=== PATIENT | female | born 1965 | race Caucasian/White ===

== ENCOUNTER 2019-12-17 19:26 | Inpatient (IN) | payer OTHER ==
[~2019-12-17] VITALS: Ht 170.2 cm; Wt 82.6 kg
[2019-12-17 19:37] VITALS: BP 140/82
[2019-12-17] MEDS ORDERED: METFORMIN HCL500 M3 PO (19:44)
[2019-12-17] MEDS ORDERED: LANTUS SUBQ (19:44)
[2019-12-17] MEDS ORDERED: LEVO-T100 MCG PO (19:45)
[2019-12-17] MEDS ORDERED: XYZAL5 MG PO (19:46)
[2019-12-17] MEDS ORDERED: FUROSEMIDE 20 M20 MG PO (19:47)
[2019-12-17] MEDS ORDERED: [UNRECOGNIZED DRUG - OTHER] PO (19:47)
[2019-12-17] MEDS ORDERED: VITAMIN B-121000 MC2 PO (19:48)
[2019-12-17] MEDS ORDERED: EZALLOR SPRINKL10 MG PO (19:49)
[2019-12-17] MEDS ORDERED: ACID REDUCER20 M1 PO (19:49)
[2019-12-17] MEDS ORDERED: FLOVENT HFA 4444 MCG INH (19:49)
[2019-12-17] MEDS ORDERED: VITAMIN D21250 MCG PO (19:50)
[2019-12-17 20:08] LABS: ABSOLUTE BASOPHILS 0.1 thou/uL (0.0-0.2); ABSOLUTE LYMPHOCYTES 0.8 thou/uL (0.8-5.3); ABSOLUTE MONOCYTES 0.7 thou/uL (0.0-1.2); ABSOLUTE NEUTROPHILS 6.4 thou/uL (1.6-8.1); HEMATOCRIT 41.3 % (37.0-47.0); HEMOGLOBIN 13.8 gm/dL (12.0-15.0); LYMPHOCYTES 10.5 %; MCHC 33.3 g/dL (28.0-37.0); MCV 80.9 fL (80.0-100.0); MONOCYTES 8.4 %; MPV 7.3 fl. (7.2-11.1); NUCLEATED RBCS 0 /100WBC; PLATELET COUNT* 280 thou/uL (150-400); POLYS 80.1 %; RBC 5.11 mil/uL (4.20-5.00); RDW-CV 14.9 % (10.5-14.5); WBC 7.9 thou/uL (4.0-11.0)
[2019-12-17 20:13] LABS: CALCIUM 8.4 mg/dL (8.5-10.1); CREATININE 0.9 mg/dL (0.6-1.3); POTASSIUM 4.1 mmol/L (3.5-5.1)
[2019-12-17 20:14] LABS: APTT 31.7 Seconds (25.0-31.3); INR 1.1; PROTIME 11.2 Seconds (9.20-11.50)
[2019-12-17 20:24] LABS: ALBUMIN 2.8 g/dL (3.4-5.0); TOTAL BILIRUBIN 0.6 mg/dL (<0.1-1.0); TOTAL PROTEIN 7.7 g/dL (6.4-8.2)
[2019-12-17 20:27] LABS: INFLUENZA A ANTIGEN Negative (Negative); INFLUENZA B ANTIGEN Negative (Negative)
[2019-12-17 22:20] VITALS: BP 121/78
[2019-12-17 22:45] VITALS: BP 116/70
[2019-12-18 01:48] LABS: URINE BILIRUBIN NEGATIVE (Negative); URINE BLOOD NEGATIVE (Negative); URINE CLARITY CLEAR; URINE COLOR YELLOW; URINE GLUCOSE-RANDOM 2+ (Negative); URINE KETONES 3+ (Negative); URINE LEUKOCYTES-REFLEX NEGATIVE (Negative); URINE NITRITE-REFLEX NEGATIVE (Negative); URINE PROTEIN TRACE (Negative); URINE UROBILINOGEN 0.2 E.U./dl (0.2-1.0)
[2019-12-18 04:00] VITALS: BP 110/68
[2019-12-18 08:00] VITALS: BP 111/70
[2019-12-18 12:00] VITALS: BP 101/60
[2019-12-18 13:46] LABS: ABSOLUTE LYMPHOCYTES 0.7 thou/uL (0.8-5.3); ABSOLUTE MONOCYTES 0.3 thou/uL (0.0-1.2); ABSOLUTE NEUTROPHILS 3.6 thou/uL (1.6-8.1); BASOPHILS 0.1 %; HEMATOCRIT 40.5 % (37.0-47.0); LYMPHOCYTES 15.8 %; MCH 26.5 pg (26.0-34.0); MCHC 32.2 g/dL (28.0-37.0); MCV 82.3 fL (80.0-100.0); MONOCYTES 7.4 %; MPV 7.4 fl. (7.2-11.1); NUCLEATED RBCS 0 /100WBC; PLATELET COUNT* 298 thou/uL (150-400); POLYS 76.7 %; RBC 4.92 mil/uL (4.20-5.00); RDW-CV 14.7 % (10.5-14.5); WBC 4.7 thou/uL (4.0-11.0)
[2019-12-18 13:57] LABS: ALBUMIN 2.4 g/dL (3.4-5.0); CALCIUM 8.2 mg/dL (8.5-10.1); CREATININE 0.9 mg/dL (0.6-1.3); MAGNESIUM 2.1 mg/dL (1.8-2.4); POTASSIUM 4.5 mmol/L (3.5-5.1); TOTAL BILIRUBIN 0.4 mg/dL (<0.1-1.0); TOTAL PROTEIN 6.9 g/dL (6.4-8.2)
--- NOTE | 2019-12-18 15:11 | EKG ---
[place] [address] ELECTROCARDIOGRAM REPORT Name: YVETTE TUCKER Room: [address] [place] .R.#: [id number] Admission: 12/17/19 Attend Phys: Sukhdev Kimball, Discharge: Date of : 67 Date of Service: 12/17/191954 Report #: [id number] THIS REPORT FOR: //name// [facility] ED Test Date: 2019-12-17 Test Time: 19:55:52 Pat Name: YVETTE TUCKER Department: Room: [facility] Gender: F Operating Room Scheduler: [place] : 1965 Requested By: Jeremy Leon Order Number: [id number] MD: Zander Dominguez Measurements Intervals [place] Rate: 103 P: 39 [place]: 150 QRS: -26 QRSD: 88 T: 36 QT: 341 QTc: 447 Interpretive Statements Sinus tachycardia Inferior infarct, old possible Delayed R wave progression over the anterior precordium No previous ECG available for comparison Electronically Signed On 12-18-2019 15:11:38 CDT by Zander Dominguez [email or web address] <ELECTRONICALLY SIGNED> By: Zander Dominguez MD, FACC 12/18/19 1511 54 54 Zander Dominguez MD, [facility] /EPI
[2019-12-18 16:00] VITALS: BP 131/79
[2019-12-18 21:30] VITALS: BP 141/82
[2019-12-19 00:17] VITALS: BP 140/80
[2019-12-19 04:58] VITALS: BP 152/77
[2019-12-19 09:00] VITALS: BP 135/69
[2019-12-19 12:30] VITALS: BP 110/61
[2019-12-19 16:39] VITALS: BP 111/60
[2019-12-19 21:30] VITALS: BP 115/65
[2019-12-20 00:29] VITALS: BP 112/51
[2019-12-20 04:24] VITALS: BP 122/50
[2019-12-20 07:50] VITALS: BP 133/62
[2019-12-20 09:46] VITALS: BP 133/62
[2019-12-20] MEDS ORDERED: AZITHROMYCIN500 MG PO (14:53)
[2019-12-20 14:55] VITALS: BP 133/62
== END 2019-12-20 15:46 | disposition home or self-care (01) | DRG 177 ==
LOC: M.ERS 19:26 → M.TBA-ER 21:13 → M.2W 21:13
PROVIDERS: Family Medicine; Internal Medicine; ADMIT Internal Medicine; ATTEND Internal Medicine
PROC: XW033E5 Introduction of Remdesivir Anti-infective into Peripheral Vein, Percutaneous Approach, New Technology Group 5 (ICD-10-PCS; principal; 2019-12-18)
DX: U07.1 COVID-19 (principal); J12.89 Other viral pneumonia; E87.1 Hypo-osmolality and hyponatremia; E11.9 Type 2 diabetes mellitus without complications; F12.90 Cannabis use, unspecified, uncomplicated; Z79.4 Long term (current) use of insulin; Z79.899 Other long term (current) drug therapy; Z88.2 Allergy status to sulfonamides; Z88.8 Allergy status to other drugs, medicaments and biological substances; Z91.09 Other allergy status, other than to drugs and biological substances; Z28.21 Immunization not carried out because of patient refusal